=== PATIENT | female | born 1995 | race Caucasian/White ===

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

== ENCOUNTER 2018-01-10 14:41 | Emergency (ER) | payer BC, OTHER ==
[~2018-01-10] VITALS: Ht 170.2 cm; Wt 64.0 kg
[~2018-01-10 14:41] MED LIST: BCPILLS PO
[2018-01-10 14:44] VITALS: Ht 170.2 cm; Wt 64.0 kg
--- NOTE | 2018-01-10 15:01 | EMERGENCY ROOM VISIT NOTE ---
ED Visit Note First contact with patient: 14:46 CHIEF COMPLAINT: Suture removal HPI: This patient returns to the ED today for removal of sutures that were placed 12 days ago in [place]. There has been no swelling, redness, or drainage from the wound. The patient feels like the laceration is healing well. The patient did shave over the laceration by mistake, and states 2 of the sutures popped out. She is uncertain if the entire suture was removed at that time or if the pressure remains under the skin. REVIEW OF SYSTEMS: A complete 6 point review of systems was reviewed with the patient with pertinent positives and negatives as per history of present illness. All else were negative. PMH: The patient is healthy; there is no significant medical or surgical history. SOCIAL HISTORY: The patient is a [employer] student. She lives locally with her roommates. She is from the [facility]. She denies drug, alcohol, tobacco use. PHYSICAL EXAM: Vital Signs: Reviewed Nurse's notes. There is a 1cm sutured wound on the left posterior calf with no signs of infection. There is no erythema, swelling, or tenderness. Only one suture visible and intact. EMERGENCY DEPARTMENT COURSE: The 1 suture was removed without any difficulty and there was no separation of the wound edges. There was no obvious sutures remaining in the wound. No palpable sutures below the skin. Discharge instructions reviewed, the patient was discharged home in good condition. I attest that I have personally reviewed the patient's current medication list. Patient was found to have normal blood pressure on screening and does not require follow-up. Differential diagnosis includes laceration, abscess, infection, cellulitis, retained foreign body, suture removal, and others DIAGNOSIS: Healing laceration and suture removal The chart was completed utilizing [employer] Speech voice recognition software. Grammatical errors, random word insertions, pronoun errors, and incomplete sentences are an occasional consequence of this system due to software limitations, ambient noise, and hardware issues. Any formal questions or concerns about the content, text, or information contained within the body of this dictation should be directly addressed to the provider for clarification. Current/Historical Medications Scheduled Control Pills ( Control Pills), 1 TAB PO DAILY Allergies Coded Allergies: Amoxicillin (Verified Allergy, Intermediate, RASH, 10/25/16) Vital Signs Date Time Temp Pulse Resp B/P (MAP) Pulse Ox O2 Delivery O2 Flow Rate FiO2 01/10/18 15:05 36.9 63 16 95 01/10/18 14:44 36.9 63 16 110/67 95 Room Air Departure Information Impression Primary Impression: Encounter for removal of sutures Additional Impression: Laceration of left calf without complication Dispostion Home / Self-Care Condition GOOD Referrals No Doctor, Assigned (PCP) Patient Instructions ED Wound Check Sutr Remove No Infec, My [facility] Additional Instructions Proper wound care is essential for adequate wound healing and infection prevention. You can shower and clean the wound with soap and water. Do not scour over the wound, pat dry with a towel. Do not submerse the wound (i.e. bathe or dish wash) until the wound has fully healed. You can use an antibiotic ointment with a dressing over the wound for the next 3-4 days. After this time you may leave the wound dry and open to the air. As discussed, I do suspect the entire sutures were removed with your accidental shaving. If not, the suture should eventually move to the surface and you should be able to remove it in the future. Please monitor for signs of redness , swelling, pus, or other concerning signs of infection. Return immediately to the emergency department if these occur. Problem Qualifiers Additional Impression: Laceration of left calf without complication Encounter type: subsequent encounter Qualified Codes: S81.812D - Laceration without foreign body, left lower leg, subsequent encounter
[2018-01-10 15:05] VITALS: BP 110/67; PULSE 63; TEMP 36.9; O2SAT 95
== END 2018-01-10 15:05 | disposition home or self-care (01) ==
LOC: C.EDB 14:43 → C.EDD 15:05
DX: S81.812D Laceration without foreign body, left lower leg, subsequent encounter (principal); X58.XXXD Exposure to other specified factors, subsequent encounter